=== PATIENT | female | born 2000 | race American Indian/Alaskan Native ===

== ENCOUNTER 2020-02-10 18:19 | Emergency (ER) | payer OTHER ==
[2020-02-10] MEDS ORDERED: FAMOTIDINE 20 MG/2 ML INJ IV ONE (18:31)
--- NOTE | 2020-02-10 18:32 | Emergency Department Report ---
ED General Adult HPI - General Chief complaint: Allergic Reaction Stated complaint: ALLERGIC REACTION PUI?: No Time Seen by Provider: 02/10/20 18:20 Source: patient, EMS Mode of arrival: Stretcher Limitations: No Limitations - History of Present Illness Initial comments: Patient is a 19-year-old female that presents emergency room for allergic reaction. Patient was having fish today and began having throat, tongue and mouth swelling and shortness of breath. Patient's family called EMS. EMS gave the patient epi, Solu-Medrol, and Benadryl. Patient states she is feeling tired after the Benadryl. Patient answering questions appropriately. Patient states her shortness of breath is better. Patient states she is feeling a little bit better. Patient denies chest pain. Patient denies nausea vomiting. Patient denies recent travel. Patient denies recent international travel. Patient denies exposure to the novel coronavirus. Patient denies sick contacts. Patient denies fever and chills. Patient denies cough. Patient denies diarrhea. Patient denies coming in contact with anybody with symptoms of the novel coronavirus. Patient states her last menstrual period was 3 weeks ago. -: Sudden Location: face Consistency: constant Associated Symptoms: denies other symptoms Treatments Prior to Arrival: other - Related Data Previous Rx's Medication Instructions Recorded Last Taken Type EPINEPHrine [Epipen 2-Janak] 0.3 mg IJ DAILY PRN #1 auto.injct 02/10/20 Unknown Rx methylPREDNISolone [Medrol 4MG 4 mg PO DAILY 6 Days #1 tab.ds.pk 02/10/20 Unknown Rx DOSEPAK (21 tabs)] Allergies Allergy/AdvReac Type Severity Reaction Status Date / Time No Known Allergies Allergy Unverified 02/10/20 20:26 ED Review of Systems ROS: Stated complaint: ALLERGIC REACTION Other details as noted in HPI Constitutional: denies: chills, fever Eyes: denies: eye pain, eye discharge, vision change ENT: as per HPI, throat pain. denies: ear pain Respiratory: shortness of breath. denies: cough, wheezing Cardiovascular: denies: chest pain, palpitations Endocrine: no symptoms reported Gastrointestinal: denies: abdominal pain, nausea, diarrhea Genitourinary: denies: urgency, dysuria, discharge Musculoskeletal: denies: back pain, joint swelling, arthralgia Skin: denies: rash, lesions Neurological: denies: headache, weakness, paresthesias Psychiatric: denies: anxiety, depression Hematological/Lymphatic: denies: easy bleeding, easy bruising ED Past Medical Hx - Past Medical History Previous Medical History?: No - Surgical History Past Surgical History?: No - Family History Family history: no significant - Social History Smoking Status: Never Smoker Substance Use Type: None - Medications Home Medications: Home Medications Medication Instructions Recorded Confirmed Last Taken Type EPINEPHrine [Epipen 2-Janak] 0.3 mg IJ DAILY PRN #1 auto.injct 02/10/20 Unknown Rx methylPREDNISolone [Medrol 4MG 4 mg PO DAILY 6 Days #1 tab.ds.pk 02/10/20 Unknown Rx DOSEPAK (21 tabs)] ED Physical Exam - General General appearance: alert, in no apparent distress - Head Head exam: Present: atraumatic, normocephalic - Eye Eye exam: Present: normal appearance - ENT ENT exam: Present: mucous membranes moist, other (Tongue and lip swelling noted.) - Neck Neck exam: Present: normal inspection - Respiratory Respiratory exam: Present: normal lung sounds bilaterally. Absent: respiratory distress - Cardiovascular Cardiovascular Exam: Present: regular rate, normal rhythm. Absent: systolic murmur, diastolic murmur, rubs, gallop - GI/Abdominal GI/Abdominal exam: Present: soft, normal bowel sounds - Extremities Exam Extremities exam: Present: normal inspection - Back Exam Back exam: Present: normal inspection - Neurological Exam Neurological exam: Present: alert, oriented X3 - Psychiatric Psychiatric exam: Present: normal affect, normal mood - Skin Skin exam: Present: warm, dry, intact, normal color. Absent: rash ED Course Vital Signs 02/10/20 02/10/20 02/10/20 18:28 20:05 20:44 Temperature 98.3 F Pulse Rate 93 H 99 H Respiratory 22 18 18 Rate Blood Pressure 130/84 Blood Pressure 115/67 [Left] O2 Sat by Pulse 94 98 100 Oximetry 02/10/20 22:35 Temperature Pulse Rate 85 Respiratory 18 Rate Blood Pressure Blood Pressure 122/80 [Left] O2 Sat by Pulse 100 Oximetry - Reevaluation(s) Reevaluation #1: Patient denies shortness of breath. Patient states she is feeling better. 02/10/20 19:08 Reevaluation #2: Patient states her lips and tongue are back to normal. Patient denies difficulty talking. Patient is awake alert and oriented x4. I discussed all results and clinical findings with patient. I discussed plan of care with patient. Patient agrees with plan of care. Patient is stable for discharge. Patient will be discharged home. Patient given discharge instructions. Patient voiced understanding of discharge instructions. 02/10/20 19:38 Reevaluation #3: Patient tolerated p.o. potassium. Patient states she is feeling much better. Patient denies any tongue or lip swelling. Patient denies any difficulties breathing. 02/10/20 21:14 Reevaluation #4: Patient potassium has improved. Patient denies any symptoms. I discussed all results and clinical findings with patient. I discussed plan of care with patient. Patient agrees with plan of care. Patient is stable for discharge. Patient will be discharged home. Patient given discharge instructions. Patient voiced understanding of discharge instructions. 02/10/20 22:21 ED Medical Decision Making - Lab Data Result diagrams: 02/10/20 18:35 02/10/20 21:39 - Medical Decision Making Patient is a 19-year-old female that presents emergency room with complaints of shortness of breath, tongue swelling and lip swelling after an allergic re action. Patient was eating fish just prior to the onset of the reaction. Patient brought in by EMS. Patient given Benadryl, Solu-Medrol and epi. Patient responded well to treatment. Upon arrival, the patient's shortness of breath have resolved. Patient given Pepcid in the ER. Patient's lips and tongue returned to normal. Patient found to have low potassium and patient was given 60 mEq of oral potassium. Patient potassium returned to normal. Patient denied symptoms prior to discharge. - Differential Diagnosis Allergic reaction, food allergy, lip and tongue swelling. Critical Care Time: Yes Critical care time in (mins) excluding proc time.: 35 Critical care attestation.: If time is entered above; I have spent that time in minutes in the direct care of this critically ill patient, excluding procedure time. Critical Care Time: 35 minutes ED Disposition Clinical Impression: Hypokalemia, Allergy, food, Tongue swelling, Lip swelling Allergic reaction Qualifiers: Encounter type: initial encounter Qualified Code(s): T78.40XA - Allergy, unspecified, initial encounter Anaphylactic reaction Qualifiers: Encounter type: initial encounter Qualified Code(s): T78.2XXA - Anaphylactic shock, unspecified, initial encounter Disposition: DC-01 TO HOME OR SELFCARE Is pt being admited?: No Does the pt Need Aspirin: No Condition: Stable Instructions: Allergies, Adult, [id number], Hypokalemia, Food Allergy, Potassium Content of Foods, Anaphylactic Reaction, Adult, Eyyr-hz-Alst Additional Instructions: Patient to follow-up with primary care in 2 to 3 days. Patient to follow-up with wallpaper consultant in 2 to 3 days. Patient to rest. Patient to increase water. Patient to avoid strenuous exercise or heavy lifting until cleared by wallpaper consultant and primary care. Patient to avoid fish. Patient to take meds as directed. Patient to return to the ER if condition worsens, changes or new symptoms arise. Prescriptions: EPINEPHrine [Epipen 2-Janak] 0.3 mg IJ DAILY PRN #1 auto.injct PRN Reason: Anaphylaxis methylPREDNISolone [Medrol 4MG DOSEPAK (21 tabs)] 4 mg PO DAILY 6 Days #1 tab.pete Referrals: PRIMARY CARE, [Primary Care Provider] - 2-3 Days Time of Disposition: 22:24
[2020-02-10 19:27] LABS: Hematocrit 39.9 % (30.3-42.9); Mean Corpuscular HGB Conc 33 % (30-34); Mean Corpuscular Volume 91 fl (79-97); Platelet Count 312 K/mm3 (140-440); Red Blood Count 4.38 M/mm3 (3.65-5.03); Red Cell Distribution Width 12.6 % (13.2-15.2)
[2020-02-10 19:45] LABS: Alanine Aminotransferase 11 units/L (7-56); Albumin 4.2 g/dL (3.9-5); BUN/Creatinine Ratio 8; Blood Urea Nitrogen 6 mg/dL (7-17); Calcium 8.9 mg/dL (8.4-10.2); Hemolysis Index 35
[2020-02-10] MEDS ORDERED: POTASSIUM CHLORIDE ER 20 MEQ TAB PO ONE (20:26)
[2020-02-10 22:13] LABS: Blood Urea Nitrogen 7 mg/dL (7-17); Calcium 9.2 mg/dL (8.4-10.2); Hemolysis Index 1
[2020-02-10 22:14] LABS: BUN/Creatinine Ratio 10
[2020-02-10 22:47] VITALS: BP 122/80
== END 2020-02-10 22:35 | disposition home or self-care (01) ==
LOC: ED 18:19
DX: T78.00XA Anaphylactic reaction due to unspecified food, initial encounter (principal); E87.6 Hypokalemia; R22.0 Localized swelling, mass and lump, head; Z79.899 Other long term (current) drug therapy; X58.XXXA Exposure to other specified factors, initial encounter
CPT/HCPCS: 36415; 80048; 80053; 84703; 85027; 96374